=== PATIENT | male | born 1980 | race Hispanic/Latino ===

== ENCOUNTER 2020-05-15 11:57 | Emergency (ER) | payer SELFPAY ==
[2020-05-15] MEDS ORDERED: KEFLEX500 M1 PO (12:53)
[2020-05-15 13:21] VITALS: BP 137/80
== END 2020-05-15 13:21 | disposition home or self-care (01) | DRG 605 ==
LOC: ED 11:57
DX: S61.231A Puncture wound without foreign body of left index finger without damage to nail, initial encounter (principal); W29.4XXA Contact with nail gun, initial encounter; Y92.89 Other specified places as the place of occurrence of the external cause; Y99.0 Civilian activity done for income or pay